=== PATIENT | female | born 1990 | race Caucasian/White ===

== ENCOUNTER → 2019-10-13 12:23 | Outpatient (CLI) | payer MEDICARE, SELFPAY ==
[2019-10-13 16:28] LABS: Hepatitis B Surface Antigen NEGATIVE s/c (NEGATIVE)
[2019-10-13 16:42] LABS: HIV 1 & 2 Ab/Ag 4th Gen Combo NEGATIVE (NEGATIVE); Hep C Virus Ab w/Reflex Quant NEGATIVE s/c (NEGATIVE)
[2019-10-15 13:35] LABS: HSV 1 IgM Screen Negative (Negative); HSV 2 IgM Screen Negative (Negative)
[2019-10-15 20:38] LABS: RPR Screen Nonreactive (Nonreactive)
== END ==
PROVIDERS: Family Provider Physician Assistant; PCP Physician Assistant; Visit Provider Nurse Practitioner Family
DX: Z20.2 Contact with and (suspected) exposure to infections with a predominantly sexual mode of transmission (principal); Z20.5 Contact with and (suspected) exposure to viral hepatitis
CPT/HCPCS: 36415; 86592; 86695; 86696; 86803; 87340; 87389

== ENCOUNTER → 2020-05-31 15:29 | Outpatient (CLI) | payer SELFPAY ==
[2020-05-31 16:19] LABS: Hematocrit 40.1 % (36-46); Hemoglobin 13.2 g/dL (12.0-16.0); Mean Corpuscular HGB Conc 32.9 % (30-36); Mean Corpuscular Hemoglobin 30.9 PG (26-34); Mean Corpuscular Volume 93.8 fL (80-100); Platelet Count 279 X10^3/uL (150-400); Red Blood Cell Count 4.27 X10^6/uL (4.0-5.2); Red Cell Distribution Width 13.4 % (11.6-14.8); White Blood Cell Count 6.5 X10^3/uL (4.5-11.0)
[2020-05-31 17:03] LABS: BUN Creatinine Ratio 12.7 (6-22); Blood Urea Nitrogen 10 mg/dL (7-17); Calcium 9.7 mg/dL (8.4-10.2); Carbon Dioxide 18 mmol/L (22-32); Chloride 105 mmol/L (98-107); Estimated Glomerular Filt Rate > 60.0 mL/min (>60); Glucose 93 mg/dL (70-100); HEMOLYSIS < 15 (0-50); Potassium 4.1 mmol/L (3.4-5.1); Sodium 136 mmol/L (137-145)
[2020-05-31 17:45] LABS: TSH w/ Reflex to FT4 0.95 uIU/mL (0.47-4.68)
== END ==
PROVIDERS: Family Provider Physician Assistant; PCP Nurse Practitioner Family; Referring Provider Nurse Practitioner Family; Visit Provider Nurse Practitioner Family
DX: N93.9 Abnormal uterine and vaginal bleeding, unspecified (principal)
CPT/HCPCS: 36415; 80048; 84443; 85027

== ENCOUNTER → 2020-06-08 07:06 | Outpatient (CLI) | payer SELFPAY ==
--- NOTE | 2020-06-08 07:10 | DI.US.S_ITS ---
PROCEDURE: US PELVIC COMPLETE INDICATIONS: DUB TECHNIQUE: Real-time scanning was performed of the pelvic organs, with image documentation. Additional endovaginal scanning was necessary due to incomplete visualization of the adnexal and endometrial structures by transabdominal scanning. COMPARISON: [facility], , PELVIC COMPLETE, 04/20/2009, 15:51. FINDINGS: Transabdominal scanning: Limited scanning through the kidneys shows no hydronephrosis. No pathologic free abdominal or pelvic fluid. Endovaginal scanning: Uterus: Uterus is normal in size at 7.2 x 3.8 x 5.1 cm. The endometrium measures 5.7 mm in combined thickness. Ovaries: The right ovary measures 2.7 x 1.7 x 2.0 cm. The left ovary measures 2.3 x 2.5 x 2.4 cm. Both ovaries demonstrate a normal echotexture. IMPRESSION: Unremarkable pelvic ultrasound in a premenopausal female. Dictated by: Ning Johnson M.D. on 06/08/2020 at 10:13 Approved by: Ning Johnson M.D. on 06/08/2020 at 10:15
== END ==
PROVIDERS: Family Provider Physician Assistant; PCP Nurse Practitioner Family; Referring Provider Nurse Practitioner Family; Visit Provider Nurse Practitioner Family
DX: N93.8 Other specified abnormal uterine and vaginal bleeding (principal)
CPT/HCPCS: 76830; 76856

== ENCOUNTER → 2022-05-08 15:02 | Outpatient (CLI) | payer MEDICARE, MEDICAID, SELFPAY ==
[2022-05-08 16:31] LABS: COVID19 -Nasal RAPID Negative (Negative)
== END ==
PROVIDERS: Family Provider Physician Assistant; PCP Nurse Practitioner Family; Visit Provider Nurse Practitioner Family
DX: J02.9 Acute pharyngitis, unspecified (principal); Z20.822 Contact with and (suspected) exposure to COVID-19
CPT/HCPCS: 87070; 87635

== ENCOUNTER → 2023-10-30 11:51 | Outpatient (CLI) | payer MEDICARE, SELFPAY ==
[2023-10-30 12:45] LABS: Add Manual Diff / Slide Review NO; Basophils Absolute Auto 0 /uL (0-100); Basophils Percent Auto 0.5 % (0-2); Eosinophils Absolute Auto 100 /uL (0-450); Eosinophils Percent Auto 1.3 % (2-4); Hematocrit 38.6 % (36-46); Hemoglobin 13.1 g/dL (12.0-16.0); Lymphocytes Absolute Auto 2300 /uL (1100-4500); Lymphocytes Percent Auto 34.9 % (25-40); Mean Corpuscular Hemoglobin 31.8 PG (26-34); Mean Corpuscular Volume 93.7 fL (80-100); Monocytes Absolute Auto 400 /uL (0-900); Monocytes Percent Auto 6.3 % (3-14); Neutrophils Absolute Auto 3700 /uL (1500-7000); Platelet Count 276 X10^3/uL (150-400); Red Blood Cell Count 4.12 X10^6/uL (4.0-5.2); Red Cell Distribution Width 13.5 % (11.6-14.8); White Blood Cell Count 6.5 X10^3/uL (4.5-11.0)
[2023-10-30 12:52] LABS: Hemoglobin A1C% w Est Avg Glu 5.1 % (4.0-6.0)
[2023-10-30 13:06] LABS: HEMOLYSIS < 15 (0-50); Iron 113 ug/dL (37-170)
[2023-10-30 13:13] LABS: Alanine Aminotransferase 55 IU/L (<35); Albumin 4.3 g/dL (3.5-5.0); Albumin Globulin Ratio 1.5 (1.0-2.8); Alkaline Phosphatase 73 U/L (38-126); Aspartate Aminotransferase 26 IU/L (14-36); BUN Creatinine Ratio 20.9 (6-22); Bilirubin Total 0.7 mg/dL (0.2-1.3); Blood Urea Nitrogen 14 mg/dL (7-17); C-Reactive Protein Quant < 0.5 mg/dL (<1.0); Calcium 9.8 mg/dL (8.4-10.2); Carbon Dioxide 24 mmol/L (22-32); Chloride 105 mmol/L (98-107); Estimated Glomerular Filt Rate > 60 mL/min (>60); Globulin 2.8 g/dL (1.7-4.1); Glucose 95 mg/dL (70-100); HEMOLYSIS < 15 (0-50); Sodium 135 mmol/L (137-145); Total Protein 7.1 g/dL (6.3-8.2)
[2023-10-30 13:20] LABS: Appearance Urine UA CLEAR; Bilirubin Urine UA NEGATIVE (NEGATIVE); Color Urine UA YELLOW; Glucose Urine UA NEGATIVE (Negative); Ketones Urine UA NEGATIVE (NEGATIVE); Leukocyte Esterase Urine UA TRACE (NEGATIVE); Nitrite Urine UA NEGATIVE (Negative); Occult Blood Urine UA NEGATIVE (Negative); Protein Urine UA NEGATIVE (Negative); Specific Gravity Urine UA 1.025 (1.000-1.035); Urobilinogen Urine UA 0.2 E.U./dL (0.2)
[2023-10-30 13:21] LABS: pH Urine UA 5.5 (4.5-8.0)
[2023-10-30 13:22] LABS: Percent Iron Saturation 42 % (15-50); Total Iron Binding Capacity 271 ug/dL (265-497); Transferrin 239 mg/dL (206-381)
[2023-10-30 13:25] LABS: Free T4, Direct Thyroxine 0.82 ng/dL (0.78-2.19)
[2023-10-30 13:39] LABS: Thyroid Stimulating Hormone 1.19 uIU/mL (0.47-4.68)
[2023-10-30 13:41] LABS: Bacteria Urine Occasional (0-1); Culture Indicated Urine Specimen Cultured; Mucus Urine 1+ (Negative); RBC Urine 0-1/HPF (0-5/HPF); Squamous Epithelial Cell Urine 10-30 /HPF (0-5/HPF); Urine Volume 10mL (spun); WBC Urine 1-5/HPF (0-5/HPF)
[2023-10-30 13:44] LABS: Ferritin 47 ng/mL (6-137)
== END ==
LOC: LAB 11:52
PROVIDERS: Family Provider Physician Assistant; PCP Registered Nurse Diabetes Educator; Referring Provider Registered Nurse Diabetes Educator; Visit Provider Registered Nurse Diabetes Educator
DX: R63.4 Abnormal weight loss (principal); R73.9 Hyperglycemia, unspecified; L65.9 Nonscarring hair loss, unspecified; L65.0 Telogen effluvium; R53.83 Other fatigue
CPT/HCPCS: 36415; 80053; 81001; 82728; 83036; 83540; 83550; 84439; 84443; 85025; 86140; 87077; 87086; 87186

== ENCOUNTER → 2024-10-26 10:12 | Outpatient (CLI) | payer MEDICARE, SELFPAY ==
[2024-10-26 11:03] LABS: Alanine Aminotransferase 21 IU/L (<35); Albumin 4.7 g/dL (3.5-5.0); Albumin Globulin Ratio 1.9 (1.0-2.8); Alkaline Phosphatase 71 U/L (38-126); Aspartate Aminotransferase 26 IU/L (14-36); Bilirubin Total 0.5 mg/dL (0.2-1.3); Bilirubin Unconjugated 0.1 mg/dL (0.0-1.1); Globulin 2.5 g/dL (1.7-4.1); HEMOLYSIS < 15 (0-50); Total Protein 7.2 g/dL (6.3-8.2)
[2024-10-27 05:36] LABS: RPR Screen Non Reactive (Non Reactive)
[2024-10-27 15:25] LABS: Hepatitis B Surface Antigen NEGATIVE s/c (NEGATIVE)
[2024-10-27 15:36] LABS: HIV 1 & 2 Ab/Ag 4th Gen Combo NEGATIVE (NEGATIVE); Hep C Virus Ab w/Reflex Quant NEGATIVE s/c (NEGATIVE)
== END ==
PROVIDERS: PCP Registered Nurse Diabetes Educator; Referring Provider Registered Nurse Diabetes Educator; Visit Provider Registered Nurse Diabetes Educator
DX: R74.8 Abnormal levels of other serum enzymes (principal); Z72.51 High risk heterosexual behavior; N94.9 Unspecified condition associated with female genital organs and menstrual cycle; N89.8 Other specified noninflammatory disorders of vagina
CPT/HCPCS: 36415; 80076; 86592; 86695; 86696; 86803; 87086; 87210; 87340; 87389

== ENCOUNTER → 2025-01-04 15:19 | Outpatient (CLI) | payer MEDICARE, SELFPAY | PROVIDERS: PCP Registered Nurse Diabetes Educator; Visit Provider Physician Assistant | DX: N89.8 Other specified noninflammatory disorders of vagina (principal) | CPT/HCPCS: 87210 ==

== ENCOUNTER → 2025-01-09 11:09 | Outpatient (CLI) | payer MEDICARE, SELFPAY ==
[2025-01-09 13:45] LABS: Urine N gonorrhoeae NOT DETECTED
[2025-01-09 13:50] LABS: Urine Chlamydia NOT DETECTED
== END ==
LOC: LAB 11:10
PROVIDERS: PCP Registered Nurse Diabetes Educator; Referring Provider Physician Assistant; Visit Provider Physician Assistant
DX: R76.8 Other specified abnormal immunological findings in serum (principal); R39.15 Urgency of urination; N89.8 Other specified noninflammatory disorders of vagina
CPT/HCPCS: 36415; 86696; 87491; 87591

== ENCOUNTER → 2025-02-23 14:29 | Outpatient (CLI) | payer MEDICARE, SELFPAY ==
[2025-02-23 16:24] LABS: HIV 1 & 2 Ab/Ag 4th Gen Combo NEGATIVE (NEGATIVE)
[2025-02-23 17:21] LABS: Urine N gonorrhoeae NOT DETECTED
[2025-02-23 17:34] LABS: Urine Chlamydia NOT DETECTED
[2025-02-25 06:11] LABS: RPR Screen Non Reactive (Non Reactive)
== END ==
PROVIDERS: PCP Registered Nurse Diabetes Educator; Referring Provider Physician Assistant; Visit Provider Physician Assistant
DX: R76.8 Other specified abnormal immunological findings in serum (principal); Z20.2 Contact with and (suspected) exposure to infections with a predominantly sexual mode of transmission; Z11.3 Encounter for screening for infections with a predominantly sexual mode of transmission
CPT/HCPCS: 36415; 86592; 87389; 87491; 87591